=== PATIENT | female | born 1990 | race Caucasian/White ===

== ENCOUNTER 2020-08-03 11:27 | Emergency (ER) | payer MEDICAID ==
[~2020-08-03] VITALS: Ht 157.5 cm; Wt 70.3 kg
[2020-08-03 11:29] VITALS: BP 130/104
--- NOTE | 2020-08-03 11:42 | NUR ---
DR. DUNLAP EVALUATING PT AT BEDSIDE
[2020-08-03] MEDS ORDERED: HYDROcodone/APAP 5/325 MG 1 TAB TAB PO ONE (11:45)
[2020-08-03] MEDS ORDERED: ONDANSETRON 4 MG ODT PO ONE (11:45)
[2020-08-03] MEDS ORDERED: KETOROLAC 30 MG/ML VIAL IM ONE (11:45)
--- NOTE | 2020-08-03 11:56 | NUR ---
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 PT HAS POOR DENITITION, HAS DENTAL CARIES THROUGHOUT.
--- NOTE | 2020-08-03 13:00 | NUR ---
PT SLEEPING IN BED, RESPIRATIONS EVEN AND UNLABORED
--- NOTE | 2020-08-03 13:05 | NUR ---
Patient discharged with v/s stable. Written and verbal after care instructions given and explained. Patient alert, oriented and verbalized understanding of instructions. Ambulatory with steady gait. All questions addressed prior to discharge. ID band removed. Patient advised to follow up with PMD. Rx of NORCO AND PEN VK given. Patient educated on indication of medication including possible reaction and side effects. Opportunity to ask questions provided and answered. PT WILL BE PICKED UP BY FRIEND
[2020-08-03 13:10] VITALS: BP 136/90
== END 2020-08-03 13:05 | disposition home or self-care (01) ==
LOC: MED 11:27
DX: S02.5XXA Fracture of tooth (traumatic), initial encounter for closed fracture (principal); K02.9 Dental caries, unspecified; X58.XXXA Exposure to other specified factors, initial encounter; Y93.89 Activity, other specified; Y92.89 Other specified places as the place of occurrence of the external cause; Y99.8 Other external cause status
CPT/HCPCS: 96372; 99283; J1885; Q0162

== ENCOUNTER 2023-04-19 17:29 | Emergency (ER) | payer MEDICAID ==
[~2023-04-19] VITALS: Ht 157.5 cm; Wt 63.5 kg
[2023-04-19 17:38] VITALS: BP 128/57
[2023-04-19] MEDS ORDERED: HYDROcodone/APAP 5/325 MG 1 TAB TAB PO ONE (18:20)
[2023-04-19] MEDS ORDERED: HYDROcodone/APAP 5/325 MG 1 TAB TAB ONE (18:23)
[2023-04-19] MEDS ORDERED: AMOX500C25 PO (18:32)
[2023-04-19] MEDS ORDERED: NAPR-54 PO (18:32)
[2023-04-19 18:49] VITALS: BP 128/57
--- NOTE | 2023-04-19 18:49 | NUR ---
PT D/C, LEFT WITHOUT PAPER WORK
== END 2023-04-19 18:49 | disposition home or self-care (01) ==
LOC: MED 17:29
DX: K04.7 Periapical abscess without sinus (principal); Z79.899 Other long term (current) drug therapy
CPT/HCPCS: 99283

== ENCOUNTER 2023-08-30 01:29 | Emergency (ER) | payer MEDICAID ==
[~2023-08-30] VITALS: Ht 157.5 cm; Wt 68.0 kg
[~2023-08-30 01:29] MED LIST: AMOX500C25 PO; NAPR-54 PO
[2023-08-30 01:42] VITALS: BP 105/50; PULSE 110; RESP 6; TEMP 97.8; O2SAT 100
[2023-08-30] MEDS ORDERED: LIDOCAINE 5% 1 EA PATCH TP SCH (02:45)
[2023-08-30] MEDS ORDERED: KETOROLAC 30 MG/ML VIAL IVP ONE (02:45)
[2023-08-30] MEDS ORDERED: CYCLOBENZAPRINE 10 MG TAB PO ONE (02:45)
[2023-08-30] MEDS ORDERED: NACL 0.9% 1,000 ML IV ONE (02:45)
[2023-08-30 03:39] LABS: APPEARANCE,URINE SL CLOUDY (CLEAR); BILIRUBIN,URINE NEGATIVE (NEGATIVE); BLOOD, URINE NEGATIVE (NEGATIVE); COLOR,URINE YELLOW (YELLOW); LEUKOCYTE ESTERASE ,URINE 1+ (NEGATIVE); NITRITE, URINE NEGATIVE (NEGATIVE); PROTEIN,URINE TRACE (NEGATIVE); UGLUCOSE NEGATIVE (NEGATIVE)
[2023-08-30 03:39] LABS: FLU A ANTIGEN negative (NEGATIVE); FLU B ANTIGEN negative (NEGATIVE)
[2023-08-30 03:45] LABS: BASOPHILS % (AUTO) 0.3 % (0.0-2.0); EOSINOPHILS # (AUTO) 0.1 K/uL (0-0.4); EOSINOPHILS % (AUTO) 0.8 % (0.0-4.0); HEMATOCRIT 34.2 % (36-48); HEMOGLOBIN 11.7 g/dL (12.0-16.0); LYMPHOCYTES # (AUTO) 2.5 K/uL (2.5-16.5); LYMPHOCYTES % (AUTO) 19.5 % (20.5-51.1); MEAN CORPUSCULAR HEMOGLOBIN 32 pg (27-31); MEAN CORPUSCULAR HGB CONC 34 g/dL (33-37); MEAN CORPUSCULAR VOLUME 92.8 fL (80-94); MONOCYTES # (AUTO) 1.5 K/uL (0.8-1.0); MONOCYTES % (AUTO) 11.8 % (1.7-9.3); NEUTROPHILS # (AUTO) 8.7 K/uL (1.8-7.7); NEUTROPHILS % (AUTO) 67.6 % (42.2-75.2); PLATELET COUNT (AUTO) 323 K/uL (140-450); RED BLOOD CELL COUNT(AUTO) 3.68 MIL/uL (4.20-5.40); RED CELL DISTRIBUTION WIDTH 13.2 % (11.6-13.7); WHITE BLOOD COUNT (AUTO) 12.9 K/uL (4.8-10.8)
[2023-08-30 04:01] LABS: BACTERIA,URINE 1+ /HPF (None Seen); MUCUS,URINE 2+ /LPF (None Seen); TRICHOMONAS,URINE None Seen /HPF (None Seen); YEAST,URINE None Seen /HPF (None Seen)
[2023-08-30 04:38] LABS: ALANINE AMINOTRANSFERASE 17 U/L (12-78); ALBUMIN 3.1 g/dL (3.4-5.0); ALKALINE PHOSPHATASE 82 U/L (50-136); ANION GAP 14.1 (8-16); ASPARTATE AMINOTRANSFERASE 15 U/L (15-37); CALCIUM 8.3 mg/dL (8.5-10.1); CARBON DIOXIDE 26.3 mmol/L (21-32); CHLORIDE 101 mmol/L (98-107); CREATININE 0.8 mg/dL (0.6-1.3); GFR ARICAN-AMERICAN 106 mL/min (>90); GFR NON ARICAN-AMERICAN 88 mL/min (>90); GLUCOSE 115 mg/dL (74-106); LIPASE 18 U/L (16-77); POTASSIUM 3.4 mmol/L (3.5-5.1); SODIUM SERUM 138 mmol/L (136-145); TOTAL BILIRUBIN 0.2 mg/dL (0.0-1.0); TOTAL PROTEIN, SERUM 7.2 g/dL (6.4-8.2); UREA NITROGEN, BLOOD 9 mg/dL (7-18)
[2023-08-30] MEDS ORDERED: LID5T TP (05:10)
[2023-08-30] MEDS ORDERED: CEPH-588 PO (05:10)
[2023-08-30] MEDS ORDERED: IBUP-2213 PO (05:10)
[2023-08-30] MEDS ORDERED: CYCL-711 PO (05:10)
[2023-08-30 05:32] VITALS: BP 109/70; PULSE 96; RESP 11; TEMP 97.8; O2SAT 100
[2023-09-01] MEDS ORDERED: SULF-59 PO (18:05)
== END 2023-08-30 05:32 | disposition home or self-care (01) ==
LOC: MED 01:29
DX: S29.011A Strain of muscle and tendon of front wall of thorax, initial encounter (principal); N39.0 Urinary tract infection, site not specified; D64.9 Anemia, unspecified; E87.6 Hypokalemia; E83.51 Hypocalcemia; M54.50 Low back pain, unspecified; Z20.822 Contact with and (suspected) exposure to COVID-19; M25.551 Pain in right hip; M25.552 Pain in left hip; Z79.899 Other long term (current) drug therapy; Z79.1 Long term (current) use of non-steroidal anti-inflammatories (NSAID); Z79.2 Long term (current) use of antibiotics; V00.131A Fall from skateboard, initial encounter; Y93.89 Activity, other specified; Y92.89 Other specified places as the place of occurrence of the external cause; Y99.8 Other external cause status
CPT/HCPCS: 36415; 71045; 80053; 81001; 81025; 83690; 84484; 85025; 85379; 87086; 87426; 87804; 96361; 96374; 99285; J1885; J7030; Q0092

== ENCOUNTER 2023-10-20 18:11 | Emergency (ER) | payer MEDICAID ==
[~2023-10-20] VITALS: Ht 162.6 cm; Wt 68.0 kg
[~2023-10-20 18:11] MED LIST changes: +CEPH-588 PO; +CYCL-711 PO; +IBUP-2213 PO; +LID5T TP; +SULF-59 PO
[2023-10-20 19:03] VITALS: BP 148/91; PULSE 139; RESP 22; TEMP 98; O2SAT 99
[2023-10-20] MEDS ORDERED: KETOROLAC 30 MG/ML VIAL IVP ONE (20:10)
[2023-10-20] MEDS ORDERED: NACL 0.9% 1,000 ML IV ONE (20:10)
[2023-10-20] MEDS ORDERED: PRED20TA5 PO (21:33)
[2023-10-20] MEDS ORDERED: IBUP-2213 PO (21:33)
[2023-10-20] MEDS ORDERED: MORPHINE SULFATE 4 MG/ML SYR IVP ONE (21:55)
== END 2023-10-20 22:51 | disposition home or self-care (01) ==
LOC: MED 18:11
DX: R06.02 Shortness of breath (principal); R05.9 Cough, unspecified; J02.9 Acute pharyngitis, unspecified; F12.90 Cannabis use, unspecified, uncomplicated; Z98.890 Other specified postprocedural states; Z79.899 Other long term (current) drug therapy; Z79.1 Long term (current) use of non-steroidal anti-inflammatories (NSAID); Z79.2 Long term (current) use of antibiotics
CPT/HCPCS: 71045; 96361; 96374; 96375; 99284; J1885; J2270; J7030